=== PATIENT | female | born 1985 | race African-American/Black ===

== ENCOUNTER 2016-04-27 14:25 | Emergency (ER) | payer BC ==
--- NOTE | 2016-04-27 15:11 | ER Document Report ---
ED Medical Screen (RME) - General Stated Complaint: TOOTH PAIN Notes: 31 yo female c/o left upper tooth pain x 4 days. + fever. + gum swelling.. TRAVEL OUTSIDE OF THE [place] IN LAST 30 DAYS: No - Related Data Allergies/Adverse Reactions: Penicillins Allergy (Mild, Verified 01/07/16 07:03) Generalized Itching amoxicillin Allergy (Verified 01/07/16 07:03) oxycodone [From OxyContin] Adverse Reaction (Verified 01/07/16 07:03) topiramate [From Topamax] Adverse Reaction (Verified 01/07/16 07:03) Past Medical History Past Surgical History: Reports: Hx Gynecologic Surgery - D&C, Hx Oral Surgery - 01/2013, Hx Tonsillectomy - adnoids - Immunizations Hx Diphtheria, Pertussis, Tetanus Vaccination: Yes Physical Exam - Vital signs Vitals: Temp Pulse Resp BP Pulse Ox 98.1 F 100 16 112/65 100 04/27/16 15:07 04/27/16 15:07 04/27/16 15:07 04/27/16 15:07 04/27/16 15:07 Course - Vital Signs Vital signs: Temp Pulse Resp BP Pulse Ox 98.1 F 100 16 112/65 100 04/27/16 15:07 04/27/16 15:07 04/27/16 15:07 04/27/16 15:07 04/27/16 15:07
[2016-04-27] MEDS ORDERED: BENZONATATE 100 MG CAPSULE PO ONE (16:29)
--- NOTE | 2016-04-27 16:29 | ER Document Report ---
HPI - HPI Patient complains to provider of: dental pain Onset: Other - 4 days Onset/Duration: Persistent Quality of pain: Achy Pain Level: 4 Context: Patient presents to the emergency department with complaints of dental pain for the past 4 days. Denies fracture tooth, reports her tooth has been hurting for a while. We will started hurting the past 4 days. Denies fever vomiting diarrhea. Reports it will cost her $350 to have her tooth pulled. Associated Symptoms: None Exacerbated by: Denies Relieved by: Denies Similar symptoms previously: Yes Recently seen / treated by doctor: No - REPRODUCTIVE Reproductive: DENIES: : - DERM Skin Color: Normal Past Medical History - General Information source: Patient - Social History Smoking Status: Never Smoker Cigarette use (# per day): No Chew tobacco use (# tins/day): No Frequency of alcohol use: None Drug Abuse: None Occupation: Home health Family History: Reviewed & Not Pertinent Patient has suicidal ideation: No Patient has homicidal ideation: No - Medical History Medical History: Negative Renal/ Medical History: Denies: Hx Peritoneal Dialysis Past Surgical History: Reports: Hx Gynecologic Surgery - D&C, Hx Oral Surgery - 01/2013, Hx Tonsillectomy - adnoids - Immunizations Hx Diphtheria, Pertussis, Tetanus Vaccination: Yes Vertical Provider Document - CONSTITUTIONAL Agree With Documented VS: Yes Exam Limitations: No Limitations General Appearance: WD/WN, No Apparent Distress - laughing happy - INFECTION CONTROL TRAVEL OUTSIDE OF THE [place] IN LAST 30 DAYS: No - HEENT HEENT: Atraumatic, Normocephalic. negative: Pharyngeal Erythema Mouth Diagram: 1 - Complains of pain no obvious cavity opens mouth wide clear voice no induration no ludwigs - NECK Neck: Normal Inspection, Supple. negative: Lymphadenopathy-Left, Lymphadenopathy-Right - RESPIRATORY Respiratory: Breath Sounds Normal, No Respiratory Distress O2 Sat by Pulse Oximetry: 100 - CARDIOVASCULAR Cardiovascular: Regular Rate - GI/ABDOMEN Gastrointestinal: Abdomen Soft, Abdomen Non-Tender - MUSCULOSKELETAL/EXTREMETIES Musculoskeletal/Extremeties: DAYNA ACUÑA - NEURO Level of Consciousness: Awake, Alert, Appropriate Motor/Sensory: No Motor Deficit - DERM Integumentary: Warm, Dry Course - Re-evaluation Re-evalutation: 04/27/16 17:15 Perrion Beny for the pain. Patient offered Tylenol 3 for pain but declined. She reports she has a history of endometrial cancer and her oncologist advised her to not take any more Tylenol. - Vital Signs Vital signs: Temp Pulse Resp BP Pulse Ox 98.1 F 100 16 112/65 100 04/27/16 15:07 04/27/16 15:07 04/27/16 15:07 04/27/16 15:07 04/27/16 15:07 Discharge - Discharge Clinical Impression: Pain, dental Condition: Stable Disposition: HOME, SELF-CARE Instructions: [facility], Clindamycin ([facility]), Dentist, Angel Luis Swan ([facility]), Toothache ([facility]) Additional Instructions: *You have been evaluated for dental pain *Take medications as prescribed *Follow up with dentist *Return to ED for worsening condition, changes, needs Prescriptions: Benzonatate [Tessalon Perles 100 mg Capsule] 100 mg PO ASDIR PRN #20 capsule PRN Reason: Clindamycin HCl [Cleocin 300 mg Capsule] 300 mg PO BID #14 capsule Forms: Return to Work
[2016-04-27 17:07] VITALS: BP 107/74
== END 2016-04-27 17:10 | disposition home or self-care (01) ==
LOC: ER 14:25
DX: K08.89 Other specified disorders of teeth and supporting structures (principal); Z85.42 Personal history of malignant neoplasm of other parts of uterus
CPT/HCPCS: 99282

== ENCOUNTER 2016-06-26 09:22 | Emergency (ER) | payer BC ==
[2016-06-26] MEDS ORDERED: ACETAMINOPHEN 325 MG TABLET PO ONE (10:21)
--- NOTE | 2016-06-26 10:22 | ER Document Report ---
ED Medical Screen (RME) - General Chief Complaint: Vaginal Bleeding Stated Complaint: VAGINAL BLEEDING Mode of Arrival: Ambulatory Information source: Patient Notes: Patient since emergency department with reports of vaginal bleeding for over a month. Patient has history of endometrial cancer. Patient reports she recently had labs done 2 weeks ago by her primary care provider. Patient reports she is unable to have a pelvic, she is sedated. I have greeted and performed a rapid initial assessment of this patient. A comprehensive ED assessment and evaluation of the patient, analysis of test results and completion of the medical decision making process will be conducted by additional ED providers. TRAVEL OUTSIDE OF THE [place] IN LAST 30 DAYS: No - Related Data Allergies/Adverse Reactions: Penicillins Allergy (Mild, Verified 06/26/16 09:32) Generalized Itching amoxicillin Allergy (Verified 06/26/16 09:32) oxycodone [From OxyContin] Adverse Reaction (Verified 06/26/16 09:32) topiramate [From Topamax] Adverse Reaction (Verified 06/26/16 09:32) Past Medical History - Social History Chew tobacco use (# tins/day): No Frequency of alcohol use: None Drug Abuse: None Renal/ Medical History: Denies: Hx Peritoneal Dialysis Past Surgical History: Reports: Hx Gynecologic Surgery - D&C, Hx Oral Surgery - 01/2013, Hx Tonsillectomy - adnoids - Immunizations Hx Diphtheria, Pertussis, Tetanus Vaccination: Yes Physical Exam - Vital signs Vitals: Temp Pulse Resp BP Pulse Ox 98.3 F 89 15 109/65 99 06/26/16 09:31 06/26/16 09:31 06/26/16 09:31 06/26/16 09:31 06/26/16 09:31 Course - Vital Signs Vital signs: Temp Pulse Resp BP Pulse Ox 98.3 F 89 15 109/65 99 06/26/16 09:31 06/26/16 09:31 06/26/16 09:31 06/26/16 09:31 06/26/16 09:31
--- NOTE | 2016-06-26 10:48 | ER Document Report ---
ED GI/ - General Mode of Arrival: Ambulatory Information source: Patient TRAVEL OUTSIDE OF THE [place] IN LAST 30 DAYS: No - HPI Patient complains to provider of: Other - see narrative Onset: Other - x1.5 months Quality of pain: Cramping Similar symptoms previously: Yes Recently seen / treated by doctor: Yes <MASON WHITTAKER - Last Filed: 06/26/16 11:05> <JORDAN BRANHAM - Last Filed: 06/26/16 12:19> - General Chief Complaint: Vaginal Bleeding Stated Complaint: VAGINAL BLEEDING Notes: Patient is a 31 year old female that presents to the emergency department today with complaints of vaginal bleeding and menstrual cramping. Patient states she was diagnosed with endometrial cancer in 2014 and she has been on chemotherapy since being diagnosed (intrauterine and oral). Patient states she has been bleeding more and her cramps have been getting worse over the last few days. Patient denies any new symptoms. PCP: none Neurologist: Rick OBGYN: Chloe (MASON WHITTAKER) - Related Data Allergies/Adverse Reactions: Penicillins Allergy (Mild, Verified 06/26/16 09:32) Generalized Itching amoxicillin Allergy (Verified 06/26/16 09:32) oxycodone [From OxyContin] Adverse Reaction (Verified 06/26/16 09:32) topiramate [From Topamax] Adverse Reaction (Verified 06/26/16 09:32) Past Medical History - General Information source: Patient - Social History Smoking Status: Never Smoker Cigarette use (# per day): No Chew tobacco use (# tins/day): No Frequency of alcohol use: None Drug Abuse: None Lives with: Family Family History: Reviewed & Not Pertinent Patient has suicidal ideation: No Patient has homicidal ideation: No Neurological Medical History: Reports: Hx Migraine Renal/ Medical History: Reports: Other - Fibroids Malignancy Medical History: Reports: Other - Endometrial CA, Diagnosed 2014, on chemo since diagnosis (intrauterine and oral) Psychiatric Medical History: Reports: Hx Attention Deficit Hyperactivity Disorder Past Surgical History: Reports: Hx Gynecologic Surgery - D&C w/ biopsy, Hx Oral Surgery - 01/2013, Hx Tonsillectomy - adnoids - Immunizations Hx Diphtheria, Pertussis, Tetanus Vaccination: Yes <MASON WHITTAKER - Last Filed: 06/26/16 11:05> Review of Systems - Review of Systems Constitutional: No symptoms reported EENT: No symptoms reported Cardiovascular: No symptoms reported Respiratory: No symptoms reported Gastrointestinal: See HPI, Nausea Genitourinary: No symptoms reported Female Genitourinary: See HPI, Vaginal bleeding, Other - menstrual cramps Musculoskeletal: No symptoms reported Skin: No symptoms reported Hematologic/Lymphatic: No symptoms reported Neurological/Psychological: No symptoms reported -: Yes All other systems reviewed and negative <MASON WHITTAKER - Last Filed: 06/26/16 11:05> Physical Exam - General General appearance: Appears well In distress: None - HEENT Head: Normocephalic, Atraumatic Eyes: Normal Conjunctiva: Normal Extraocular movements intact: Yes Pupils: PERRL - Respiratory Respiratory status: No respiratory distress Chest status: Nontender Breath sounds: Normal - Cardiovascular Rhythm: Regular Heart sounds: Normal auscultation Murmur: No - Abdominal Inspection: Obese Distension: No distension Bowel sounds: Normal Tenderness: Tender - mild diffuse lower abdominal tenderness consistent with history Organomegaly: No organomegaly - Extremities General upper extremity: Normal inspection, Normal ROM. No: Edema General lower extremity: Normal inspection, Normal ROM. No: Edema - Neurological Neuro grossly intact: Yes Cognition: Normal Orientation: AAOx4 Speech: Normal - Psychological Associated symptoms: Normal affect, Normal mood - Skin Skin Temperature: Warm Skin Moisture: Dry Skin Color: Normal <MASON WHITTAKER - Last Filed: 06/26/16 11:05> <JORDAN BRANHAM - Last Filed: 06/26/16 12:19> - Vital signs Vitals: Temp Pulse Resp BP Pulse Ox 98.3 F 89 15 109/65 99 06/26/16 09:31 06/26/16 09:31 06/26/16 09:31 06/26/16 09:31 06/26/16 09:31 - Genitourinary Notes: Patient defers pelvic exam "unless she can be sedated" (MASON WHITTAKER) Course - Laboratory Result Diagrams: 06/26/16 10:55 06/26/16 10:55 <MASON WHITTAKER - Last Filed: 06/26/16 11:05> - Laboratory Result Diagrams: 06/26/16 10:55 06/26/16 10:55 <JORDAN BRANHAM - Last Filed: 06/26/16 12:19> - Re-evaluation Re-evalutation: 06/26/16 12:13 The patient additionally complained of her left eye having a film that would come across it when she looked to the side. Film would come across the center then stopped and then her eye would focus. Additionally, she reports she used to see Dr. Corona. She would like to do her oncology here locally and not have to drive all the way to [place] every month. She is advised to follow-up with Dr. Corona this week for reevaluation of her vaginal bleeding and cramps, and to see about referral to a local oncologist. She is also advised to follow-up with an eye doctor tomorrow to further evaluate her left eye complaint. (JORDAN BRANHAM) - Vital Signs Vital signs: Temp Pulse Resp BP Pulse Ox 98.3 F 90 20 103/60 100 06/26/16 09:31 06/26/16 11:40 06/26/16 11:40 06/26/16 11:40 06/26/16 11:40 - Laboratory Laboratory results interpreted by me: 06/26/16 06/26/16 10:55 10:55 Hgb 8.9 L Hct 29.5 L MCV 66 L MCH 19.7 L MCHC 30.1 L RDW 19.7 H Chloride 109 H Discharge <MASON WHITTAKER - Last Filed: 06/26/16 11:05> <JORDAN BRANHAM - Last Filed: 06/26/16 12:19> - Discharge Clinical Impression: Iron deficiency anemia due to chronic blood loss, Chronic female pelvic pain, Vaginal bleeding problems, Endometrial cancer Condition: Stable Disposition: HOME, SELF-CARE Additional Instructions: Anemia, Iron Deficiency You have anemia (a lower than normal amount of red blood cells). Our tests show it's due to lack of iron in your body. In adults, it's most often caused by blood loss (heavy periods or intestinal bleeding) or by . If the cause of iron deficiency is not clear, we evaluate for hidden intestinal bleeding. Another possible cause is failure to absorb iron properly. Iron-deficiency is treated with iron supplements. Iron pills can upset your stomach and cause constipation. Taking it with food decreases nausea. Expect the stool to become darker (but not black). Taking iron with a juice high in vitamin C (orange juice, tomato juice) increases absorption. You can increase your dietary iron by eating liver, oysters, and lean beef ; wheat germ, peas, and lentils; and molasses, dried prunes, spinach, and broccoli. Contact the doctor at once if you note black or tarry-looking stools, bloody vomiting, shortness of breath, chest pain, or faintness. CONTINUE YOUR REGULAR MEDICATIONS. TRY ALEVE FOR YOUR CRAMPS. TAKE THE SUPPLEMENTAL IRON PRESCRIBED. CALL DR. CORONA TOMORROW FOR AN APPOINTMENT TO EVALUATE THE BLEEDING AND CRAMPS. ALSO ASK ABOUT A REFERRAL TO A LOCAL ONCOLOGIST. FOLLOW UP WITH A LOCAL EYE DOCTOR TOMORROW IF YOUR VISION CONTINUES TO BE A PROBLEM. Prescriptions: Ferrous Sulfate [Iron] 325 mg PO DAILY #100 tablet Referrals: LAUREN CORONA MD [EMERITUS] - Follow up as needed Scribe Attestation: 06/26/16 12:18 I personally performed the services described in the documentation, reviewed and edited the documentation which was dictated to the scribe in my presence, and it accurately records my words and actions. (JORDAN BRANHAM) Scribe Documentation - Scribe Written by Donnie:: Donnie Grayson, 06/26/2016 1059 acting as scribe for :: Bassam <MASON WHITTAKER - Last Filed: 06/26/16 11:05>
[2016-06-26 11:07] LABS: ABSOLUTE BASOPHILS # (AUTO) 0.1 10^3/uL (0.0-0.2); ABSOLUTE EOSINOPHILS # (AUTO) 0.1 10^3/uL (0.0-0.6); ABSOLUTE LYMPHOCYTES (AUTO) 1.6 10^3/uL (0.5-4.7); ABSOLUTE MONOCYTES (AUTO) 0.6 10^3/uL (0.1-1.4); ABSOLUTE NEUT (AUTO) 2.8 10^3/uL (1.7-8.2); BASOPHILS % (AUTO) 1.3 % (0-2); HEMATOCRIT 29.5 % (36.0-47.0); HEMOGLOBIN 8.9 g/dL (12.0-15.5); HGB HCT DIFFERENCE -2.8; LYMPHOCYTES % (AUTO) 31.5 % (13-45); MEAN CORPUSCULAR HEMOGLOBIN 19.7 pg (27.0-33.4); MEAN CORPUSCULAR HGB CONC 30.1 g/dL (32.0-36.0); MEAN CORPUSCULAR VOLUME 66 fl (80-97); MONOCYTES % (AUTO) 11.5 % (3-13); RED CELL DISTRIBUTION WIDTH 19.7 % (11.5-14.0); SEGMENTED NEUTROPHILS % (AUTO) 53.7 % (42-78); WHITE BLOOD COUNT 5.1 10^3/uL (4.0-10.5)
[2016-06-26 11:32] LABS: ALANINE AMINOTRANSFERASE 23 U/L (9-52); ALKALINE PHOSPHATASE 61 U/L (38-126); ANION GAP 12 (5-19); ASPARTATE AMINO TRANSFERASE 25 U/L (14-36); BILIRUBIN,DIRECT 0.2 mg/dL (0.0-0.4); BILIRUBIN,TOTAL 0.6 mg/dL (0.2-1.3); BLOOD UREA NITROGEN 14 mg/dL (7-20); CALCIUM 9.3 mg/dL (8.4-10.2); CARBON DIOXIDE 23 mmol/L (22-30); CHLORIDE 109 mmol/L (98-107); CREATININE RESULT 0.66 mg/dL (0.52-1.25); GLUCOSE 86 mg/dL (75-110); POTASSIUM 4.3 mmol/L (3.6-5.0); SODIUM 143.5 mmol/L (137-145); TOTAL PROTEIN 7.2 g/dL (6.3-8.2)
[2016-06-26 11:45] VITALS: BP 103/60
== END 2016-06-26 12:29 | disposition home or self-care (01) ==
LOC: ER 09:22
DX: C55 Malignant neoplasm of uterus, part unspecified (principal); D50.0 Iron deficiency anemia secondary to blood loss (chronic); R10.2 Pelvic and perineal pain; G89.29 Other chronic pain; R11.0 Nausea; N94.6 Dysmenorrhea, unspecified; H57.8 Other specified disorders of eye and adnexa; Z79.899 Other long term (current) drug therapy; Z88.0 Allergy status to penicillin
CPT/HCPCS: 36415; 80053; 85025; 99284

== ENCOUNTER 2017-08-20 09:17 | Observation (INO) | payer BC ==
--- NOTE | 2017-08-20 09:32 | ER Document Report ---
ED Medical Screen (RME) - General Chief Complaint: Flank Pain Stated Complaint: BACK PAIN Time Seen by Provider: 08/20/17 09:28 Mode of Arrival: Ambulatory Information source: Patient Notes: This is a 32-year-old female with a history of medical static endometrial cancer (followed by [place] [facility], gynecology here by Dr. Corona) who presents to the emergency room increased lethargy, fevers and back pain. Patient's pain is over the right CVA area. She denies headache or neck pain. She is ambulatory in the ER. TRAVEL OUTSIDE OF THE [place] IN LAST 30 DAYS: No - Related Data Allergies/Adverse Reactions: Penicillins Allergy (Mild, Verified 08/20/17 09:29) Generalized Itching amoxicillin Allergy (Verified 08/20/17 09:29) oxycodone [From OxyContin] Adverse Reaction (Verified 08/20/17 09:29) Past Medical History - Social History Chew tobacco use (# tins/day): No Frequency of alcohol use: Rare Drug Abuse: None Neurological Medical History: Reports: Hx Migraine Renal/ Medical History: Denies: Hx Peritoneal Dialysis Psychiatric Medical History: Reports: Hx Attention Deficit Hyperactivity Disorder Past Surgical History: Reports: Hx Gynecologic Surgery - D&C w/ biopsy, Hx Oral Surgery - 01/2013, Hx Tonsillectomy - adnoids - Immunizations Hx Diphtheria, Pertussis, Tetanus Vaccination: Yes Physical Exam - Vital signs Vitals: Temp Pulse Resp BP Pulse Ox 99.0 F 115 H 16 116/67 98 08/20/17 09:22 08/20/17 09:22 08/20/17 09:22 08/20/17 09:22 08/20/17 09:22 Course - Vital Signs Vital signs: Temp Pulse Resp BP Pulse Ox 99.0 F 115 H 16 116/67 98 08/20/17 09:22 08/20/17 09:22 08/20/17 09:22 08/20/17 09:22 08/20/17 09:22
[2017-08-20] MEDS ORDERED: NORMAL SALINE 1000 ML 1,000 ML IV ONE ×2 (10:28→13:51)
[2017-08-20] MEDS ORDERED: HYDROCODONE/ACETAMINOPHEN 5-325 MG TABLET PO ONE (10:29)
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
[2017-08-20 12:00] LABS: HEMATOCRIT 23.3 % (36.0-47.0); MEAN CORPUSCULAR HEMOGLOBIN 17.6 pg (27.0-33.4); MEAN CORPUSCULAR HGB CONC 29.8 g/dL (32.0-36.0); PLATELET COUNT 176 10^3/uL (150-450); RED BLOOD COUNT 3.94 10^6/uL (3.72-5.28); RED CELL DISTRIBUTION WIDTH 21.8 % (11.5-14.0); WHITE BLOOD COUNT 27.3 10^3/uL (4.0-10.5)
[2017-08-20 12:04] LABS: HEMOGLOBIN 6.9 g/dL (12.0-15.5); MEAN CORPUSCULAR VOLUME 59 fl (80-97)
[2017-08-20 12:14] LABS: ALANINE AMINOTRANSFERASE 22 U/L (9-52); ALBUMIN 4.1 g/dL (3.5-5.0); ALKALINE PHOSPHATASE 49 U/L (38-126); ANION GAP 11 (5-19); ASPARTATE AMINO TRANSFERASE 16 U/L (14-36); BILIRUBIN,DIRECT 0.2 mg/dL (0.0-0.4); BILIRUBIN,TOTAL 0.3 mg/dL (0.2-1.3); BLOOD UREA NITROGEN 10 mg/dL (7-20); CALCIUM 9.5 mg/dL (8.4-10.2); CARBON DIOXIDE 25 mmol/L (22-30); CHLORIDE 106 mmol/L (98-107); GLUCOSE 90 mg/dL (75-110); POTASSIUM 3.7 mmol/L (3.6-5.0); SODIUM 141.9 mmol/L (137-145); TOTAL PROTEIN 7.6 g/dL (6.3-8.2)
[2017-08-20 12:20] LABS: INTERNATIONAL RATION (INR) 1.07; PROTHROMBIN TIME 14.4 SEC (11.4-15.4)
[2017-08-20 12:21] LABS: PARTIAL THROMBOPLASTIN TIME 36.6 SEC (23.5-35.8)
[2017-08-20 12:27] LABS: ABSOLUTE LYMPHOCYTES# (MANUAL) 1.1 10^3/uL (0.5-4.7); ABSOLUTE MONOCYTES # (MANUAL) 0.5 10^3/uL (0.1-1.4); ABSOLUTE NEUTROPHILS# (MANUAL) 25.7 10^3/uL (1.7-8.2); BASOPHILS % (MANUAL) 0 % (0-2); EOSINOPHILS % (MANUAL) 0 % (0-6); LYMPHOCYTES % (MANUAL) 4 % (13-45); MONOCYTES % (MANUAL) 2 % (3-13); SEGMENTED NEUTROPHILS % (MAN) 94 % (42-78); TOTAL CELLS COUNTED 100
[2017-08-20 12:30] LABS: TOXIC VACUOLATION PRESENT
[2017-08-20 12:31] LABS: ANISOCYTOSIS 3+; HYPOCHROMASIA 4+; OVALOCYTES 1+; PLATELET COMMENT ADEQUATE; POIKILOCYTOSIS 1+; ROULEAUX 1+; TARGET CELLS 1+
[2017-08-20] MEDS ORDERED: NORMAL SALINE 250 ML IV PRN (12:52)
[2017-08-20 13:36] LABS: APPEARANCE,URINE CLOUDY; BILIRUBIN,URINE NEGATIVE (NEGATIVE); COLOR,URINE RED; GLUCOSE, URINE NEGATIVE (NEGATIVE); KETONES,URINE TRACE mg/dL (NEGATIVE); LEUKOCYTE ESTERASE,URINE MODERATE (NEGATIVE); NITRITE,URINE NEGATIVE (NEGATIVE); PROTEIN,URINE 100 mg/dL (NEGATIVE); UROBILINOGEN,URINE NEGATIVE mg/dL (<2.0)
[2017-08-20] MEDS ORDERED: LEVOFLOXACIN 750 MG/D5W RTU 750 MG/150 ML RTUPB IV ONE (13:53)
[2017-08-20 14:26] LABS: VENOUS BLOOD BASE EXCESS -2.8 mmol/L; VENOUS BLOOD HCO3 22.4 mmol/L (20-32); VENOUS BLOOD PCO2 40.5 mmHg (35-63); VENOUS BLOOD PH 7.36 (7.30-7.42)
[2017-08-20 14:32] LABS: INTERNATIONAL RATION (INR) 1.08; PROTHROMBIN TIME 14.5 SEC (11.4-15.4)
--- NOTE | 2017-08-20 15:06 | RADIOLOGY REPORT (SQ) ---
EXAM DESCRIPTION: CHEST 2 VIEWS COMPLETED DATE/TIME: 08/20/2017 2:45 pm REASON FOR STUDY: tachycardia, leukocytosis COMPARISON: None. EXAM PARAMETERS: NUMBER OF VIEWS: two views TECHNIQUE: Digital Frontal and Lateral radiographic views of the chest acquired. RADIATION DOSE: NA LIMITATIONS: none FINDINGS: LUNGS AND PLEURA: No opacities, masses or pneumothorax. No pleural effusion. MEDIASTINUM AND HILAR STRUCTURES: No masses or contour abnormalities. HEART AND VASCULAR STRUCTURES: Heart normal size. No evidence for failure. BONES: No acute findings. HARDWARE: None in the chest. OTHER: No other significant finding. IMPRESSION: NO ACUTE RADIOGRAPHIC FINDING IN THE CHEST. TECHNICAL DOCUMENTATION: JOB ID: [id number] [employer]- All Rights Reserved Reading location - IP/workstation name: [email or web address]
--- NOTE | 2017-08-20 15:14 | RADIOLOGY REPORT (SQ) ---
EXAM DESCRIPTION: CT LTD RENAL STONE PROTOCOL ON COMPLETED DATE/TIME: 08/20/2017 2:34 pm REASON FOR STUDY: flank pain, UTI COMPARISON: [facility] from [facility] dated 09/29/2014. TECHNIQUE: CT scan of the abdomen and pelvis performed without intravenous or oral contrast. Images reviewed with lung, soft tissue, and bone windows. Reconstructed coronal and sagittal MPR images revi ewed. All images stored on PACS. All CT scanners at this facility use dose modulation, iterative reconstruction, and/or weight based d osing when appropriate to reduce radiation dose to as low as reasonably achievable (ALARA). [facility]: Dose Right [facility]: CareDose [facility]: Dose Right [facility]: Teradose 4D [facility]: Smart [employer] RADIATION DOSE: CT Rad equipment meets quality standard of care and radiation dose reduction techniq ues were employed. CTDIvol: 13.2 mGy. DLP: 641 mGy-cm.mGy. LIMITATIONS: None. FINDINGS: LOWER CHEST: No significant findings. No nodules or infiltrates. NON-CONTRASTED LIVER, SPLEEN, ADRENALS: Evaluation limited by lack of IV contrast. No identified sign ificant masses. PANCREAS: No masses. No peripancreatic inflammatory changes. GALLBLADDER: No identified stones by CT criteria. No inflammatory changes to suggest cholecystitis. RIGHT KIDNEY AND URETER: No suspicious masses. Assessment limited by lack of IV contrast. No signif icant calcifications. No hydronephrosis or hydroureter. LEFT KIDNEY AND URETER: No suspicious masses. Assessment limited by lack of IV contrast. No signifi cant calcifications. No hydronephrosis or hydroureter. AORTA AND RETROPERITONEUM: No aneurysm. No retroperitoneal masses or adenopathy. BOWEL AND PERITONEAL CAVITY: No obvious masses or inflammatory changes. No free fluid. APPENDIX: Normal. PELVIS, BLADDER, AND ABDOMINAL WALL:Heterogenous mass arising in the pelvis and extending superiorly into the abdomen to the level of the umbilicus. AP measurement 10 cm, transverse measurement 14 cm, and craniocaudal measurement 15 cm. The empty bladder is compressed anteriorly. No free fluid. BONES: No significant findings. OTHER: No other significant finding. IMPRESSION: 1. LARGE MASS ARISING FROM THE PELVIS DESCRIBED. THIS MAY BE AN ENLARGED FIBROID UTERUS. CANNOT EXCLUDE OVARIAN MASS. MAY CONSIDER FOLLOW-UP CT WITH ORAL AND INTRAVENOUS CONTRAST. OUTPATIENT MRI OF THE ABDOMEN AND PELVIS MAY ULTIMATELY BE NECESSARY TO COMPLETE THE WORKUP. 2. NO OTHER SIGNIFICANT OR ACUTE PROCESS IN THE ABDOMEN OR PELVIS. COMMENT: Quality ID # [id number]: Final reports with documentation of one or more dose reduction techniques (e.g., Automated exposure control, adjustment of the mA and/or kV according to patient size, use of iterative reconstruction technique) TECHNICAL DOCUMENTATION: JOB ID: [id number] [employer]- All Rights Reserved Reading location - IP/workstation name: [email or web address]
--- NOTE | 2017-08-20 16:19 | EKG REPORT ---
SEVERITY:- ABNORMAL ECG - SINUS RHYTHM ABNORMAL Q SUGGESTS ANTERIOR INFARCT BORDERLINE T ABNORMALITIES, INFERIOR LEADS : Confirmed by: Krishna Hernandez 20-Aug-2017 16:17:24
[2017-08-20] MEDS ORDERED: ACETAMINOPHEN 325 MG TABLET PO PRN (18:38)
[2017-08-20] MEDS ORDERED: NORMAL SALINE 1000 ML 1,000 ML IV PRN (18:39)
[2017-08-20] MEDS: HYDROMORPHONE HCL 2 MG TABLET PO PRN (18:47)
[2017-08-20] MEDS: IBUPROFEN 800 MG TABLET PO SCH (21:14)
[2017-08-21] MEDS: IBUPROFEN 800 MG TABLET PO SCH (05:25)
[2017-08-21 06:19] LABS: ABSOLUTE BASOPHILS # (AUTO) 0.1 10^3/uL (0.0-0.2); ABSOLUTE EOSINOPHILS # (AUTO) 0.2 10^3/uL (0.0-0.6); ABSOLUTE LYMPHOCYTES (AUTO) 1.8 10^3/uL (0.5-4.7); ABSOLUTE NEUT (AUTO) 11.2 10^3/uL (1.7-8.2); BASOPHILS % (AUTO) 0.5 % (0-2); EOSINOPHILS % (AUTO) 1.1 % (0-6); HEMATOCRIT 28.4 % (36.0-47.0); HEMOGLOBIN 8.8 g/dL (12.0-15.5); LYMPHOCYTES % (AUTO) 12.5 % (13-45); MEAN CORPUSCULAR HEMOGLOBIN 19.8 pg (27.0-33.4); MEAN CORPUSCULAR HGB CONC 30.9 g/dL (32.0-36.0); MONOCYTES % (AUTO) 6.9 % (3-13); RED BLOOD COUNT 4.43 10^6/uL (3.72-5.28); RED CELL DISTRIBUTION WIDTH 25.6 % (11.5-14.0); TOTAL CELLS COUNTED % (AUTO) 100 %; WHITE BLOOD COUNT 14.1 10^3/uL (4.0-10.5)
[2017-08-21 06:21] LABS: MEAN CORPUSCULAR VOLUME 64 fl (80-97)
[2017-08-21 06:47] LABS: ANISOCYTOSIS 3+; HYPOCHROMASIA 3+; PLATELET CLUMPS PRESENT; PLATELET COMMENT ADEQUATE
[2017-08-21 06:48] LABS: BURR CELLS SLIGHT; POIKILOCYTOSIS SLIGHT
[2017-08-21 06:49] LABS: OVALOCYTES SLIGHT; TARGET CELLS SLIGHT
[2017-08-21 06:51] LABS: POLYCHROMASIA SLIGHT
[2017-08-21 06:53] LABS: PLATELET COUNT 176 10^3/uL (150-450)
[2017-08-21] MEDS: HYDROMORPHONE HCL 2 MG TABLET PO PRN (08:27)
[2017-08-21 08:31] VITALS: BP 120/74
[2017-08-21] MEDS ORDERED: LEVOFLOXACIN 500 MG/D5W RTU 500 MG/100 ML RTUPB IV SCH (10:00)
[2017-08-21 13:24] LABS: PATH REVIEW PATHOLOGIST REVIEWED
== END 2017-08-21 12:10 | disposition home or self-care (01) ==
LOC: ER 09:17 → INTOOBSV 14:16 → EH 14:16 → 2S 15:57
PROVIDERS: ADMIT Specialist; ATTEND Specialist
PROC: 30233N1 Transfusion of Nonautologous Red Blood Cells into Peripheral Vein, Percutaneous Approach (ICD-10-PCS; principal; 2017-08-20)
DX: N93.9 Abnormal uterine and vaginal bleeding, unspecified (principal); N12 Tubulo-interstitial nephritis, not specified as acute or chronic; D72.829 Elevated white blood cell count, unspecified; D64.9 Anemia, unspecified; R50.9 Fever, unspecified; C54.1 Malignant neoplasm of endometrium; M54.9 Dorsalgia, unspecified; R00.0 Tachycardia, unspecified; R94.31 Abnormal electrocardiogram [ECG] [EKG]; Z87.440 Personal history of urinary (tract) infections; Z98.890 Other specified postprocedural states; Z53.29 Procedure and treatment not carried out because of patient's decision for other reasons
CPT/HCPCS: 93005; 99285; 96360; 86900; 86901; 36415 ×2; 87040; 87086; 36430; 86850; 84443; 84703; 85025 ×2; 85610; 85730; 87088; 80053; 81001; 86920; 82803; 83605; 71046; 76380; 93010; G0378 ×3; P9016; J1956 ×2; J7030

== ENCOUNTER 2017-09-08 05:13 | Day surgery (SDC) | payer BC ==
[2017-09-05 12:03] LABS: HEMATOCRIT 25.5 % (36.0-47.0); MEAN CORPUSCULAR HEMOGLOBIN 20.4 pg (27.0-33.4); MEAN CORPUSCULAR HGB CONC 31.3 g/dL (32.0-36.0); MEAN CORPUSCULAR VOLUME 65 fl (80-97); PLATELET COUNT 688 10^3/uL (150-450); RED CELL DISTRIBUTION WIDTH 27.7 % (11.5-14.0); WHITE BLOOD COUNT 8.2 10^3/uL (4.0-10.5)
[2017-09-05 12:34] LABS: ANION GAP 15 (5-19); BLOOD UREA NITROGEN 8 mg/dL (7-20); CALCIUM 9.8 mg/dL (8.4-10.2); CARBON DIOXIDE 19 mmol/L (22-30); CHLORIDE 112 mmol/L (98-107); GLUCOSE 76 mg/dL (75-110); POTASSIUM 4.3 mmol/L (3.6-5.0); SODIUM 145.9 mmol/L (137-145)
[2017-09-07 15:26] LABS: APPEARANCE,URINE CLOUDY; BILIRUBIN,URINE NEGATIVE (NEGATIVE); GLUCOSE, URINE 50 mg/dL (NEGATIVE); KETONES,URINE NEGATIVE (NEGATIVE); LEUKOCYTE ESTERASE,URINE SMALL (NEGATIVE); NITRITE,URINE NEGATIVE (NEGATIVE); PROTEIN,URINE >=500 mg/dL (NEGATIVE); URINE SPECIFIC GRAVITY 1.017; UROBILINOGEN,URINE NEGATIVE mg/dL (<2.0)
[2017-09-07 15:27] LABS: COLOR,URINE RED
[~2017-09-08 05:13] MED LIST: CEFAZOLIN 1 GM/D5W RTU 1 GM/50 ML RTUPB IV PRN; LACTATED RINGERS 1000 ML IV PRN; LIDOCAINE 0.5% INJ-PF (5 MG/ML) 50 ML SDV SUBCUT PRN
[2017-09-08] MEDS ORDERED: MIDAZOLAM 2 MG/2 ML INJ ONE ×2 (07:11→07:13)
[2017-09-08] MEDS ORDERED: FENTANYL CITRATE INJ/PF 100 MCG/2 ML AMPUL ONE ×2 (07:11→08:05)
[2017-09-08] MEDS ORDERED: PROPOFOL INJ 200 MG/20 ML VIAL IV ONE (07:12)
[2017-09-08] MEDS ORDERED: LIDOCAINE 1% INJ-PF (10 MG/ML) 30 ML SDV ONE (07:13)
[2017-09-08] MEDS ORDERED: MEPERIDINE HCL/PF INJ 25 MG/1 ML DISP.SYRIN IV PRN (07:44)
[2017-09-08] MEDS ORDERED: DIPHENHYDRAMINE HCL 50 MG/ML VIAL IV PRN (07:44)
[2017-09-08] MEDS ORDERED: FENTANYL CITRATE INJ/PF 100 MCG/2 ML AMPUL IV PRN ×3 (07:44)
[2017-09-08] MEDS ORDERED: PROMETHAZINE HCL INJ 25 MG/1 ML VIAL IV PRN ×2 (07:44)
[2017-09-08] MEDS ORDERED: OXYCODONE-ACETAMINOPHEN 5-325 MG TABLET PO PRN (08:10)
[2017-09-08] MEDS ORDERED: PROMETHAZINE HCL INJ 50 MG/1 ML VIAL IM PRN (08:11)
[2017-09-08] MEDS ORDERED: IBUPROFEN 800 MG TABLET PO SCH (10:00)
[2017-09-08 10:12] VITALS: BP 129/85
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
== END 2017-09-08 10:20 | disposition home or self-care (01) ==
LOC: OROUT 05:13
PROVIDERS: ATTEND Specialist
DX: C54.1 Malignant neoplasm of endometrium (principal); D25.9 Leiomyoma of uterus, unspecified; N92.0 Excessive and frequent menstruation with regular cycle
CPT/HCPCS: 86900; 86901; 36415 ×2; 86850; 85027; 81025; 80048; 81001; 88305 ×2; 58558; J2250; J0690; J3010; J3490; J2704; 952

== ENCOUNTER 2017-11-04 13:03 | Emergency (ER) | payer BC ==
[2017-11-04 13:12] VITALS: BP 126/84
--- NOTE | 2017-11-04 13:38 | ER Document Report ---
ED Medical Screen (RME) - General Chief Complaint: Post Surgical Pain Stated Complaint: POST SURGICAL COMPLICATIONS Time Seen by Provider: 11/04/17 13:14 Notes: Patient is 1-1/2 weeks postop from radical hysterectomy for malignancy. At this presents complaining of surgical incision site opening up. Patient had macario removed yesterday. When she got home the incision was wide open. Remains wide open and getting more open. Denies any symptoms other than pain in the skin area of her lower abdomen. Patient was operated [facility] by [facility]. [place] were removed yesterday at [place]. I have greeted and performed a rapid initial assessment of this patient. A comprehensive ED assessment and evaluation of the patient, analysis of test results and completion of the medical decision making process will be conducted by additional ED providers. TRAVEL OUTSIDE OF THE [place] IN LAST 30 DAYS: No - Related Data Allergies/Adverse Reactions: Penicillins Allergy (Mild, Verified 11/04/17 13:05) Generalized Itching amoxicillin Allergy (Verified 11/04/17 13:05) oxycodone [From OxyContin] Adverse Reaction (Verified 11/04/17 13:05) IV contrast Allergy (Severe, Uncoded 11/04/17 13:05) Vomiting Past Medical History - Past Medical History Cardiac Medical History: Denies: Hx Coronary Artery Disease, Hx Heart Attack, Hx Hypertension Pulmonary Medical History: Denies: Hx Asthma, Hx Bronchitis, Hx COPD, Hx Pneumonia Neurological Medical History: Reports: Hx Migraine. Denies: Hx Cerebrovascular Accident, Hx Seizures Renal/ Medical History: Denies: Hx Peritoneal Dialysis Musculoskeltal Medical History: Denies Hx Arthritis Psychiatric Medical History: Reports: Hx Attention Deficit Hyperactivity Disorder Past Surgical History: Reports: Hx Gynecologic Surgery - D&C w/ biopsy, Hx Oral Surgery - 01/2013, Hx Tonsillectomy - adnoids - Immunizations Hx Diphtheria, Pertussis, Tetanus Vaccination: No History of Influenza Vaccine for 01/2017 - 06/2017 Season: No Review of Systems - Review of Systems Notes: Review of systems positive for abdominal pain and skin incision opening Physical Exam - Vital signs Vitals: Temp Pulse Resp BP Pulse Ox 98.5 F 98 20 126/84 H 99 11/04/17 13:11 11/04/17 13:11 11/04/17 13:11 11/04/17 13:11 11/04/17 13:11 - Abdominal Inspection: Other - Very large 6-7 cm skin surgical incision site that has dehisced. All tenderness to palpation Course - Vital Signs Vital signs: Temp Pulse Resp BP Pulse Ox 98.5 F 98 20 126/84 H 99 11/04/17 13:11 11/04/17 13:11 11/04/17 13:11 11/04/17 13:11 11/04/17 13:11 Doctor's Discharge - Discharge Referrals: DARINEL LLAMAS MD [Primary Care Provider] - Follow up as needed
[2017-11-04] MEDS ORDERED: OXYCODONE-ACETAMINOPHEN 5-325 MG TABLET PO ONE (14:26)
[2017-11-04] MEDS ORDERED: TRAMADOL HCL 50 MG TABLET PO ONE (14:27)
--- NOTE | 2017-11-04 14:59 | ER Document Report ---
ED General - General Chief Complaint: Post Surgical Pain Stated Complaint: POST SURGICAL COMPLICATIONS Time Seen by Provider: 11/04/17 13:14 TRAVEL OUTSIDE OF THE [place] IN LAST 30 DAYS: No - HPI Notes: 32-year-old female who recently had an open hysterectomy at [facility] secondary to cancer presents with wound dehiscence. Patient of note was seen yesterday at the [facility] where they remove macario, but only placed Steri- Strips and the top half the wound. She states that time it "came apart a little bit" and they told her "it would be okay and he will fine". However states she has had increased pain and appears of spread more. She denies any drainage, no fever, chills or sweats. Burning pain, nonradiating. - Related Data Allergies/Adverse Reactions: Penicillins Allergy (Mild, Verified 11/04/17 13:05) Generalized Itching amoxicillin Allergy (Verified 11/04/17 13:05) oxycodone [From OxyContin] Adverse Reaction (Verified 11/04/17 13:05) IV contrast Allergy (Severe, Uncoded 11/04/17 13:05) Vomiting Past Medical History - Social History Smoking Status: Never Smoker Frequency of alcohol use: None Drug Abuse: None Family History: Reviewed & Not Pertinent Patient has suicidal ideation: No Patient has homicidal ideation: No - Medical History Notes: Recent surgery as described - Past Medical History Cardiac Medical History: Denies: Hx Coronary Artery Disease, Hx Heart Attack, Hx Hypertension Pulmonary Medical History: Denies: Hx Asthma, Hx Bronchitis, Hx COPD, Hx Pneumonia Neurological Medical History: Reports: Hx Migraine. Denies: Hx Cerebrovascular Accident, Hx Seizures Renal/ Medical History: Denies: Hx Peritoneal Dialysis Musculoskeletal Medical History: Denies Hx Arthritis Psychiatric Medical History: Reports: Hx Attention Deficit Hyperactivity Disorder Past Surgical History: Reports: Hx Gynecologic Surgery - D&C w/ biopsy, Hx Hysterectomy, Hx Oral Surgery - 01/2013, Hx Tonsillectomy - adnoids - Immunizations Hx Diphtheria, Pertussis, Tetanus Vaccination: No Review of Systems - Review of Systems Notes: Review of systems as in the history of present illness, otherwise negative x 10 systems. Physical Exam - Vital signs Vitals: Temp Pulse Resp BP Pulse Ox 98.5 F 98 20 126/84 H 99 11/04/17 13:11 11/04/17 13:11 11/04/17 13:11 11/04/17 13:11 11/04/17 13:11 - Notes Notes: General: Well developed . HEENT: Normocephalic, atraumatic. Pupils equal round reactive to light. No JVD. Chest: No trauma. Respiratory: Good air exchange, normal excursion. Cardiac: Regular rhythm. No murmurs or gallops. Abdomen: Soft, benign. Nondistended. There is a linear incision in the lower mid abdomen. The caudal 6 cm or so appears to be widely dehisced with healthy- appearing fat visible. No evidence of drainage or infection. Fascia is not disrupted. Back: No asymmetry or gross abnormality. Motor: Grossly normal power and tone. Neurologic: Alert, nonfocal. Cranial nerves II-12 are intact. Sensation intact. Vascular: Well perfused. Normal peripheral pulses. Skin: No petechiae or purpura. Course - Re-evaluation Re-evalutation: 11/04/17 15:50 Well-appearing female the after mentioned symptoms and wound separation. No evidence of infection. Case discussed with the on-call surgeon from [facility] who is familiar with the patient. Requests wet to dry dressings and that they would follow-up with her early next week for placement of wound VAC. - Vital Signs Vital signs: Temp Pulse Resp BP Pulse Ox 98.5 F 98 20 126/84 H 99 11/04/17 13:11 11/04/17 13:11 11/04/17 13:11 11/04/17 13:11 11/04/17 13:11 Discharge - Discharge Clinical Impression: Wound dehiscence Condition: Good Disposition: HOME, SELF-CARE Additional Instructions: Follow-up with your surgeon early next week Prescriptions: Tramadol HCl 50 mg PO Q6 #10 tablet Referrals: DARINEL LLAMAS MD [COMMUNITY BASED STAFF] - Follow up as needed
== END 2017-11-04 15:06 | disposition home or self-care (01) ==
LOC: ER 13:03
DX: Z90.710 Acquired absence of both cervix and uterus (principal); T81.31XA Disruption of external operation (surgical) wound, not elsewhere classified, initial encounter; Y83.6 Removal of other organ (partial) (total) as the cause of abnormal reaction of the patient, or of later complication, without mention of misadventure at the time of the procedure; Z88.0 Allergy status to penicillin; Z91.041 Radiographic dye allergy status
CPT/HCPCS: 99283

== ENCOUNTER → 2018-01-03 | Outpatient (CLI) | payer BC ==
--- NOTE | 2018-01-03 10:44 | RADIOLOGY REPORT (SQ) ---
EXAM DESCRIPTION: U/S ABDOMEN LIMITED W/O DOP COMPLETED DATE/TIME: 01/03/2018 10:26 am REASON FOR STUDY: R22.9 LOCALIZED SWELLING, MASS AND LUMP, UNSPECIFIED R22.9 LOCALIZED SWELLING, MA SS AND LUMP, UNSPECIFIED COMPARISON: None. TECHNIQUE: Dynamic and static grayscale images acquired of the localized site of clinical concern an d recorded on PACS. Additional selected color Doppler and spectral images recorded. SITE OF CONCERN: Left upper quadrant. LIMITATIONS: None. FINDINGS: SKIN AND SUBCUTANEOUS TISSUES: No masses. No fluid collections. No edema. No foreign raegan s. DEEP SOFT TISSUES/MUSCLES: No masses. No fluid collections. No edema. VASCULAR: No increased or decreased vascularity. No occlusions. OTHER: No other significant finding. IMPRESSION: NO SOFT TISSUE MASS, FLUID COLLECTION, OR FOREIGN BODY. TECHNICAL DOCUMENTATION: JOB ID: [id number] [email or web address]- All Rights Reserved Reading location - IP/workstation name: [email or web address]
--- NOTE | 2018-01-03 13:16 | RADIOLOGY REPORT (SQ) ---
EXAM DESCRIPTION: RIBS LEFT W/PA CHEST COMPLETED DATE/TIME: 01/03/2018 10:57 am REASON FOR STUDY: M99.08 SEGMENTAL AND SOMATIC DYSFUNCTION OF RIB CAGE R22.9 LOCALIZED SWELLING, MA SS AND LUMP, UNSPECIFIED COMPARISON: None. TECHNIQUE: Frontal view of the chest and additional views of the left ribs acquired. NUMBER OF VIEWS: Four view. LIMITATIONS: None. FINDINGS: FRONTAL CXR: No pneumothorax. No pleural effusion. No atelectasis or infiltrates. RIBS: No displaced rib fractures. No lytic or blastic bony lesions. OTHER: No other significant finding. IMPRESSION: NO PNEUMOTHORAX. NO DISPLACED RIB FRACTURES. COMMENT: SITE OF TRAUMA/COMPLAINT MARKED/STAMP COMPLETED: NO. TECHNICAL DOCUMENTATION: JOB ID: [id number] [employer]- All Rights Reserved Reading location - IP/workstation name: [email or web address]
== END ==
LOC: RAD 09:44
PROVIDERS: ATTEND Physician Assistant
DX: M99.08 Segmental and somatic dysfunction of rib cage (principal); R22.9 Localized swelling, mass and lump, unspecified
CPT/HCPCS: 76705

== ENCOUNTER 2018-01-10 06:29 | Emergency (ER) | payer BC ==
[2018-01-10] MEDS ORDERED: BUPIVACAINE HCL 0.5 % INJ/PF 30 ML SDV INJ ONE (07:22)
[2018-01-10] MEDS ORDERED: LIDOCAINE 1% INJ (10 MG/ML) 10 ML MDV INJ ONE (07:23)
[2018-01-10 07:27] VITALS: BP 114/90
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
== END 2018-01-10 07:46 | disposition home or self-care (01) ==
LOC: ER 06:29
DX: S02.5XXA Fracture of tooth (traumatic), initial encounter for closed fracture (principal); K04.7 Periapical abscess without sinus; X58.XXXA Exposure to other specified factors, initial encounter; Z90.710 Acquired absence of both cervix and uterus; Z88.0 Allergy status to penicillin
CPT/HCPCS: 99283

== ENCOUNTER 2018-01-28 08:22 | Emergency (ER) | payer BC ==
[2018-01-28 08:26] VITALS: BP 126/79
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
== END 2018-01-28 09:33 | disposition home or self-care (01) ==
LOC: ER 08:22
DX: K08.89 Other specified disorders of teeth and supporting structures (principal); Z85.42 Personal history of malignant neoplasm of other parts of uterus
CPT/HCPCS: 99282

== ENCOUNTER 2018-06-11 09:35 | Emergency (ER) | payer SELFPAY ==
--- NOTE | 2018-06-11 09:52 | ER Document Report ---
ED Medical Screen (RME) - General Chief Complaint: Dizziness Stated Complaint: DIZZINESS Time Seen by Provider: 06/11/18 09:50 Mode of Arrival: Ambulatory Information source: Patient Notes: 33-year-old female presents with complaint of dizziness, lightheadedness and shortness of breath that started 3 days prior to arrival. I have greeted and performed a rapid initial assessment of this patient. A comprehensive ED assessment and evaluation of the patient, analysis of test results and completion of medical decision making process we will be contacted by additional ED providers. PHYSICAL EXAMINATION: Vital signs reviewed GENERAL: Well-appearing, well-nourished and in no acute distress. LUNGS: No respiratory distress Musculoskeletal: Normal range of motion NEUROLOGICAL: Normal speech, normal gait. PSYCH: Normal mood, normal affect. SKIN: Warm, Dry, normal turgor, no rashes or lesions noted. TRAVEL OUTSIDE OF THE [place] IN LAST 30 DAYS: No - HPI Onset: Other Onset/Duration: Intermittent Quality of pain: No pain Associated Symptoms: Dizzy/lightheaded, Shortness of breath Exacerbated by: Denies Relieved by: Denies Similar symptoms previously: No Recently seen / treated by doctor: No - Related Data Smoking: Non-smoker Frequency of alcohol use: None Drug Abuse: None Allergies/Adverse Reactions: Penicillins Allergy (Mild, Verified 06/11/18 09:58) Generalized Itching amoxicillin Allergy (Verified 06/11/18 09:58) oxycodone [From OxyContin] Adverse Reaction (Verified 06/11/18 09:58) IV contrast Allergy (Severe, Uncoded 06/11/18 09:58) Vomiting Past Medical History - Past Medical History Cardiac Medical History: Denies: Hx Coronary Artery Disease, Hx Heart Attack, Hx Hypertension Pulmonary Medical History: Denies: Hx Asthma, Hx Bronchitis, Hx COPD, Hx Pneumonia Neurological Medical History: Reports: Hx Migraine. Denies: Hx Cerebrovascular Accident, Hx Seizures Renal/ Medical History: Denies: Hx Peritoneal Dialysis Musculoskeltal Medical History: Denies Hx Arthritis Psychiatric Medical History: Reports: Hx Attention Deficit Hyperactivity Disorder Past Surgical History: Reports: Hx Gynecologic Surgery - D&C w/ biopsy, Hx Hysterectomy, Hx Oral Surgery - 01/2013, Hx Tonsillectomy - adnoids - Immunizations Hx Diphtheria, Pertussis, Tetanus Vaccination: No History of Influenza Vaccine for 01/2017 - 06/2017 Season: No Physical Exam - Vital signs Vitals: Temp Pulse Resp BP Pulse Ox 99 F 94 16 123/80 100 06/11/18 09:42 06/11/18 09:42 06/11/18 09:42 06/11/18 09:42 06/11/18 09:42 Course - Vital Signs Vital signs: Temp Pulse Resp BP Pulse Ox 99 F 94 16 123/80 100 06/11/18 09:42 06/11/18 09:42 06/11/18 09:42 06/11/18 09:42 06/11/18 09:42
[2018-06-11] MEDS ORDERED: NORMAL SALINE 1000 ML 1,000 ML IV ONE (10:32)
[2018-06-11] MEDS ORDERED: MECLIZINE HCL 25 MG TABLET PO ONE (10:32)
--- NOTE | 2018-06-11 10:35 | ER Document Report ---
ED Dizziness/Weakness - General Chief Complaint: Dizziness Stated Complaint: DIZZINESS Time Seen by Provider: 06/11/18 09:50 Primary Care Provider: AMANDEEP MESA PA-C [NURSE PRACTITIONER] - Follow up tomorrow Mode of Arrival: Ambulatory Information source: Patient Notes: Patient presents complaining of dizziness off and on for the past 3 days in which she states she feels off balance. Patient does complain of some exertional shortness of breath as well. Patient denies any headache or chest pain symptoms. Patient denies any cough or cold symptoms. Patient does report some recent sneezing. Patient denies any fever. Patient denies any recent immobilization or long distance travel. No history of DVT or PE in the past. TRAVEL OUTSIDE OF THE [place] IN LAST 30 DAYS: No - HPI Patient complains to provider of: Dizziness Onset: Other - 3 days Onset/Duration: Waxing and waning Quality of pain: No pain Pain Level: Denies Associated symptoms: Lightheaded, Short of breath. denies: Diarrhea, Fainted, Headache, Nausea, Recent trauma, Vomiting Baseline gait: Walks w/o assistance - Related Data Allergies/Adverse Reactions: Penicillins Allergy (Mild, Verified 06/11/18 09:58) Generalized Itching amoxicillin Allergy (Verified 06/11/18 09:58) oxycodone [From OxyContin] Adverse Reaction (Verified 06/11/18 09:58) IV contrast Allergy (Severe, Uncoded 06/11/18 09:58) Vomiting Past Medical History - General Information source: Patient - Social History Smoking Status: Current Every Day Smoker Frequency of alcohol use: None Drug Abuse: None Lives with: Family Family History: Reviewed & Not Pertinent Patient has suicidal ideation: No Patient has homicidal ideation: No - Past Medical History Cardiac Medical History: Reports: None Denies: Hx DVT, Hx Pulmonary Embolism Neurological Medical History: Reports: Hx Migraine Renal/ Medical History: Denies: Hx Peritoneal Dialysis Musculoskeletal Medical History: Denies Hx Arthritis Psychiatric Medical History: Reports: Hx Attention Deficit Hyperactivity D isorder Past Surgical History: Reports: Hx Gynecologic Surgery - D&C w/ biopsy, Hx Hysterectomy, Hx Oral Surgery - 01/2013, Hx Tonsillectomy - adnoids - Immunizations Hx Diphtheria, Pertussis, Tetanus Vaccination: No Review of Systems - Review of Systems Constitutional: No symptoms reported. denies: Fever, Recent illness EENT: No symptoms reported. denies: Nose congestion Cardiovascular: Lightheaded. denies: Chest pain, Palpitations Respiratory: Short of breath. denies: Cough, Hurts to breathe, Hemoptysis, Sputum Gastrointestinal: No symptoms reported. denies: Abdomen distended, Abdominal pain, Diarrhea, Vomiting Genitourinary: No symptoms reported Female Genitourinary: No symptoms reported Musculoskeletal: No symptoms reported. denies: Back pain, Neck pain Skin: No symptoms reported Hematologic/Lymphatic: No symptoms reported Neurological/Psychological: No symptoms reported. denies: Weakness, Lost c onsciousness, Headaches Physical Exam - Vital signs Vitals: Temp Pulse Resp BP Pulse Ox 99 F 94 16 123/80 100 06/11/18 09:42 06/11/18 09:42 06/11/18 09:42 06/11/18 09:42 06/11/18 09:42 - General General appearance: Appears well, Alert In distress: None - HEENT Head: Normocephalic, Atraumatic. No: [place]'s eyes Eyes: Normal Conjunctiva: Normal Extraocular movements intact: Yes Pupils: PERRL Ears: Normal External canal: Normal Nasal: Normal Mouth/Lips: Normal Mucous membranes: Normal Pharynx: Normal Neck: Normal, Supple. No: Lymphadenopathy, Meningismus - Respiratory Respiratory status: No respiratory distress Chest status: Nontender Breath sounds: Normal. No: Rales, Rhonchi, Stridor, Wheezing Chest palpation: Normal - Cardiovascular Rhythm: Regular. No: Tachycardia Heart sounds: S1 appreciated, S2 appreciated Murmur: No - Abdominal Inspection: Normal Distension: No distension Bowel sounds: Normal Tenderness: Nontender Organomegaly: No organomegaly - Back Back: Normal, Nontender. No: CVA tenderness, Vertebra tenderness - Extremities General upper extremity: Normal inspection, Normal ROM General lower extremity: Normal inspection, Normal ROM. No: Edema - Neurological Neuro grossly intact: Yes Cognition: Normal [place] Coma Scale Eye Opening: Spontaneous [place] Coma Scale Verbal: Oriented [place] Coma Scale Motor: Obeys Commands [place] Coma Scale Total: 15 - Psychological Associated symptoms: Normal affect, Normal mood - Skin Skin Temperature: Warm Skin Moisture: Dry Skin Color: Normal Course - Re-evaluation Re-evalutation: 06/11/18 11:17 Patient low probability for PE per well's criteria and is PERC negative. 06/11/18 12:05 Patient states that her symptoms have improved at this time. Patient was stable vital signs. No concern for PE or MD at this time. Patient reports symptoms have been for the past 3 days. Patient with benign diagnostic evaluation at this time. Good return precautions discussed. - Vital Signs Vital signs: Temp Pulse Resp BP Pulse Ox 97.6 F 85 16 111/82 94 06/11/18 12:09 06/11/18 12:09 06/11/18 12:09 06/11/18 12:09 06/11/18 12:09 - Laboratory Result Diagrams: 06/11/18 10:09 06/11/18 10:09 Laboratory results interpreted by me: 06/11/18 06/11/18 10:09 11:00 RBC 5.40 H MCV 76 L MCH 24.6 L RDW 20.3 H Urine Blood SMALL H Ur Leukocyte Esterase SMALL H Labs- Entire Visit 06/11/18 06/11/18 06/11/18 10:09 10:09 10:09 WBC 5.8 RBC 5.40 H Hgb 13.3 Hct 40.9 MCV 76 L MCH 24.6 L MCHC 32.4 RDW 20.3 H Plt Count 279 Seg Neutrophils % 61.5 Lymphocytes % 27.7 Monocytes % 9.4 Eosinophils % 0.9 Basophils % 0.5 Absolute Neutrophils 3.6 Absolute Lymphocytes 1.6 Absolute Monocytes 0.5 Absolute Eosinophils 0.0 Absolute Basophils 0.0 Sodium 139.2 Potassium 4.9 Chloride 103 Carbon Dioxide 26 Anion Gap 10 BUN 9 Creatinine 0.83 Est GFR ( Amer) > 60 Est GFR (Non-Af Amer) > 60 Glucose 82 Calcium 10.2 Total Bilirubin 0.7 Direct Bilirubin 0.3 Neonat Total Bilirubin Not Reportable Neonat Direct Bilirubin Not Reportable Neonat Indirect Bili Not Reportable AST 23 ALT 18 Alkaline Phosphatase 65 Troponin I < 0.012 Total Protein 8.2 Albumin 4.6 Urine Color Urine Appearance Urine pH Ur Specific [place] Urine Protein Urine Glucose (UA) Urine Ketones Urine Blood Urine Nitrite Urine Bilirubin Urine Urobilinogen Ur Leukocyte Esterase Urine WBC (Auto) Urine RBC (Auto) Urine Bacteria (Auto) Squamous Epi Cells Auto Urine Mucus (Auto) Urine Ascorbic Acid 06/11/18 11:00 WBC RBC Hgb Hct MCV MCH MCHC RDW Plt Count Seg Neutrophils % Lymphocytes % Monocytes % Eosinophils % Basophils % Absolute Neutrophils Absolute Lymphocytes Absolute Monocytes Absolute Eosinophils Absolute Basophils Sodium Potassium Chloride Carbon Dioxide Anion Gap BUN Creatinine Est GFR ( Amer) Est GFR (Non-Af Amer) Glucose Calcium Total Bilirubin Direct Bilirubin Neonat Total Bilirubin Neonat Direct Bilirubin Neonat Indirect Bili AST ALT Alkaline Phosphatase Troponin I Total Protein Albumin Urine Color YELLOW Urine Appearance SLIGHTLY-CLOUDY Urine pH 6.0 Ur Specific [place] 1.012 Urine Protein NEGATIVE Urine Glucose (UA) NEGATIVE Urine Ketones NEGATIVE Urine Blood SMALL H Urine Nitrite NEGATIVE Urine Bilirubin NEGATIVE Urine Urobilinogen NEGATIVE Ur Leukocyte Esterase SMALL H Urine WBC (Auto) 7 Urine RBC (Auto) 1 Urine Bacteria (Auto) 3+ Squamous Epi Cells Auto 11 Urine Mucus (Auto) MOD Urine Ascorbic Acid NEGATIVE - Diagnostic Test Radiology reviewed: Image reviewed, Reports reviewed - EKG Interpretation by Me EKG shows normal: Sinus rhythm Rate: Normal Rhythm: NSR Additional EKG results interpreted by me: 06/11/18 12:06 qtc 428 Discharge - Discharge Clinical Impression: Light-headed Dyspnea Qualifiers: Dyspnea type: unspecified Qualified Code(s): R06.00 - Dyspnea, unspecified Condition: Stable Disposition: HOME, SELF-CARE Instructions: Dizziness ([facility]), Meclizine ([facility]) Additional Instructions: Return immediately for any new or worsening symptoms Followup with your primary care provider, call tomorrow to make a followup appointment Prescriptions: Meclizine HCl [Antivert 25 mg Tablet] 25 mg PO ASDIR PRN #12 tablet PRN Reason: Ondansetron HCl [Zofran 4 mg Tablet] 1 - 2 tab PO Q6 PRN #15 tablet PRN Reason: Referrals: AMANDEEP MESA PA-C [NURSE PRACTITIONER] - Follow up tomorrow
[2018-06-11 10:47] LABS: ABSOLUTE LYMPHOCYTES (AUTO) 1.6 10^3/uL (0.5-4.7); ABSOLUTE MONOCYTES (AUTO) 0.5 10^3/uL (0.1-1.4); ABSOLUTE NEUT (AUTO) 3.6 10^3/uL (1.7-8.2); BASOPHILS % (AUTO) 0.5 % (0-2); EOSINOPHILS % (AUTO) 0.9 % (0-6); HEMATOCRIT 40.9 % (36.0-47.0); HEMOGLOBIN 13.3 g/dL (12.0-15.5); LYMPHOCYTES % (AUTO) 27.7 % (13-45); MEAN CORPUSCULAR HEMOGLOBIN 24.6 pg (27.0-33.4); MEAN CORPUSCULAR HGB CONC 32.4 g/dL (32.0-36.0); MEAN CORPUSCULAR VOLUME 76 fl (80-97); MONOCYTES % (AUTO) 9.4 % (3-13); PLATELET COUNT 279 10^3/uL (150-450); RED CELL DISTRIBUTION WIDTH 20.3 % (11.5-14.0); SEGMENTED NEUTROPHILS % (AUTO) 61.5 % (42-78); TOTAL CELLS COUNTED % (AUTO) 100 %; WHITE BLOOD COUNT 5.8 10^3/uL (4.0-10.5)
[2018-06-11 10:53] LABS: ALANINE AMINOTRANSFERASE 18 U/L (9-52); ALBUMIN 4.6 g/dL (3.5-5.0); ALKALINE PHOSPHATASE 65 U/L (38-126); ANION GAP 10 (5-19); ASPARTATE AMINO TRANSFERASE 23 U/L (14-36); BILIRUBIN,DIRECT 0.3 mg/dL (0.0-0.4); BILIRUBIN,TOTAL 0.7 mg/dL (0.2-1.3); BLOOD UREA NITROGEN 9 mg/dL (7-20); CALCIUM 10.2 mg/dL (8.4-10.2); CARBON DIOXIDE 26 mmol/L (22-30); CHLORIDE 103 mmol/L (98-107); GLUCOSE 82 mg/dL (75-110); POTASSIUM 4.9 mmol/L (3.6-5.0); SODIUM 139.2 mmol/L (137-145); TOTAL PROTEIN 8.2 g/dL (6.3-8.2)
--- NOTE | 2018-06-11 11:16 | RADIOLOGY REPORT (SQ) ---
EXAM DESCRIPTION: CHEST 2 VIEWS COMPLETED DATE/TIME: 06/11/2018 11:07 am REASON FOR STUDY: sob COMPARISON: 08/20/2017. EXAM PARAMETERS: NUMBER OF VIEWS: two views TECHNIQUE: Digital Frontal and Lateral radiographic views of the chest acquired. RADIATION DOSE: NA LIMITATIONS: none FINDINGS: LUNGS AND PLEURA: No opacities, masses or pneumothorax. No pleural effusion. MEDIASTINUM AND HILAR STRUCTURES: No masses or contour abnormalities. HEART AND VASCULAR STRUCTURES: Heart normal size. No evidence for failure. BONES: No acute findings. HARDWARE: None in the chest. OTHER: No other significant finding. IMPRESSION: NO ACUTE RADIOGRAPHIC FINDING IN THE CHEST. TECHNICAL DOCUMENTATION: JOB ID: [id number] [employer]- All Rights Reserved Reading location - IP/workstation name: [email or web address]
[2018-06-11 11:20] LABS: APPEARANCE,URINE SLIGHTLY-CLOUDY; BILIRUBIN,URINE NEGATIVE (NEGATIVE); COLOR,URINE YELLOW; GLUCOSE, URINE NEGATIVE (NEGATIVE); KETONES,URINE NEGATIVE (NEGATIVE); LEUKOCYTE ESTERASE,URINE SMALL (NEGATIVE); NITRITE,URINE NEGATIVE (NEGATIVE); PROTEIN,URINE NEGATIVE (NEGATIVE); URINE SPECIFIC GRAVITY 1.012; UROBILINOGEN,URINE NEGATIVE mg/dL (<2.0)
[2018-06-11] MEDS ORDERED: ONDANSETRON HCL INJ/PF 4 MG/2 ML SDV IV ONE (11:31)
[2018-06-11 12:14] VITALS: BP 111/82
--- NOTE | 2018-06-11 13:33 | EKG REPORT ---
SEVERITY:- BORDERLINE ECG - SINUS RHYTHM POOR R WAVE PROGRESSION ANTERIOR LEADS. : Confirmed by: Manuel Leslie MD 11-Jun-2018 13:32:24
== END 2018-06-11 12:14 | disposition home or self-care (01) ==
LOC: ER 09:35
DX: R42 Dizziness and giddiness (principal); R06.02 Shortness of breath; R06.7 Sneezing; F17.200 Nicotine dependence, unspecified, uncomplicated; Z88.0 Allergy status to penicillin; Z91.041 Radiographic dye allergy status
CPT/HCPCS: 93005; 99284; 96361; 96374; 36415; 85025; 80053; 81001; 84484; 71046; 93010; J2405; J7030